=== PATIENT | female | born 1950 | race Caucasian/White ===

== ENCOUNTER 2023-09-01 11:05 | Emergency (ER) | payer MEDICARE, BC, OTHER, SELFPAY ==
--- NOTE | ~2023-09-01 | XR_ITS ---
XR chest 2V DATE: 09/01/2023 12:04 INDICATION: Chest pain, shallow breathing TECHNIQUE: AP and lateral views COMPARISON: None FINDINGS: Heart size is normal. No hilar or mediastinal enlargement. No pulmonary infiltrate or consolidation, pleural effusion or pulmonary vascular congestion or pneumo thorax is detected. IMPRESSION: No active cardiopulmonary disease Reviewed, dictated and finalized at location A. CIATE ACCOUNT DIRECTOR
--- NOTE | ~2023-09-01 | CT_ITS ---
EXAMINATION: CTA chest PE protocol DATE: 09/01/2023 16:43 TYRE FITTER INDICATION: Left-sided chest pain. TECHNIQUE: Computed tomographic angiography (CTA) of the chest was performed with 100 mL Omnipaque-35 0 intravenous contrast. The dose-length product was 166.81 mGy-cm. Maximum intensity projection 3D-re constructions of the aorta and other arteries were constructed by the technologist on a separate work station. Automated exposure control and iterative reconstruction technique were employed. COMPARISON: None. FINDINGS: No significant pleural or pericardial effusion. There is mild atherosclerosis. Heart size m ildly enlarged. Study is technically adequate without evidence for pulmonary embolism. There is depen dent atelectasis. No endobronchial lesions. Mildly elevated right diaphragm. No pneumothorax. No endo bronchial lesions. No focal consolidation. There is apical pleural thickening/scarring. There is a 4 mm right upper lobe nodule. Mild thoracic spondylosis. No acute osseous abnormality. IMPRESSION: 1. No evidence for pulmonary embolism. 2: Cardiomegaly. 3: Right upper lobe nodule measuring 4 mm, likely benign. Consider follow-up CT in 12 months. Reviewed, dictated and finalized at location A. FITTER
--- NOTE | 2023-09-01 11:06 | ECG_ITS ---
Measurements Intervals [place] Rate: 88 P: 29 WI: 137 QRS: 22 QRSD: 85 T: -3 QT: 351 QTc: 426 Interpretive Statements SINUS RHYTHM POSSIBLE LEFT ATRIAL ENLARGEMENT [-0.1mV P WAVE IN V1/V2] NONSPECIFIC ST & T-WAVE ABNORMALITY NO PREVIOUS ECG AVAILABLE FOR COMPARISON Electronically Signed On 09-01-2023 19:50:57 CUSTOMER OPERATIONS MANAGER by Caitlin Lawrence M.D.
[2023-09-01 11:16] VITALS: BP 126/50; PULSE 91; RESP 18; TEMP 37; O2SAT 99
[2023-09-01 11:29] LABS: Basophils Percent Auto 0.4 % (0.2-1.2); Eosinophils Absolute Auto 0.1 K/mm3 (0-0.3); Eosinophils Percent Auto 1.5 % (0-4.4); Hematocrit 40.2 % (37.0-47.0); Immature Granulocyte Absolute 0.02 K/mm3 (0.00-0.031); Immature Granulocyte Percent A 0.3 % (0-0.5); Lymphocytes Absolute Auto 2.39 K/mm3 (0.9-3.2); Mean Corpuscular HGB Conc 32.3 g/dl (32-36); Mean Corpuscular Hemoglobin 34.5 pg (26-34); Mean Corpuscular Volume 106.6 fl (80-100); Mean Platelet Volume 10.8 fl (7.4-10.4); Monocytes Absolute Auto 0.6 K/mm3 (0.1-0.6); Monocytes Percent Auto 8.1 % (2.6-8.5); Neutrophils Absolute Auto 4.1 K/mm3 (1.3-6.7); Neutrophils Percent Auto 56.7 % (45.5-73.1); Platelet Count Result 172 k/mm3 (150-375); Red Blood Count 3.77 M/mm3 (4.2-5.4); Red Cell Distribution Width 15.5 % (11.5-14.5); White Blood Count 7.2 K/mm3 (4.5-10.0)
[2023-09-01 11:40] LABS: Prothrombin Time 13.6 Seconds (11.1-14.7)
[2023-09-01 11:41] LABS: Partial Thromboplastin Time 30.1 SECONDS (22.3-36.8)
[2023-09-01 11:42] LABS: Alanine Aminotransferase 17 U/L (6-35); Albumin Level 4.7 g/dL (3.5-5.1); Alkaline Phosphatase 60 U/L (38-126); Anion Gap 9 mmol/L (8-16); Aspartate Amino Transferase 23 U/L (14-36); Bilirubin,Total 0.6 mg/dL (0.2-1.3); Blood Urea Nitrogen 13 mg/dL (7-17); Calcium 9.5 mg/dL (8.4-10.2); Carbon Dioxide 27 mmol/L (22-30); Chloride 105 mmol/L (98-107); Estimated CRCL calculation 51 ml/min; Estimated Glomerular Filt Rate > 60; Glucose 131 mg/dL (65-110); Lipase 70 U/L (23-300); Sodium 141 mmol/L (137-145)
[2023-09-01 11:53] LABS: Platelet Estimate Adequate (Adequate); Schistocytes None Seen (NORMAL); Troponin I < 0.012 ng/mL (0.000-0.034)
[2023-09-01 11:54] LABS: Anisocytosis 1+ (NORMAL)
--- NOTE | 2023-09-01 14:24 | ECG_ITS ---
Measurements Intervals [place] Rate: 72 P: 56 NE: 130 QRS: 20 QRSD: 81 T: 25 QT: 380 QTc: 416 Interpretive Statements SINUS RHYTHM POSSIBLE LEFT ATRIAL ENLARGEMENT [-0.1mV P WAVE IN V1/V2] NONSPECIFIC T-WAVE ABNORMALITY COMPARED TO ECG 09/01/2023 11:18:44 NO SIGNIFICANT CHANGES Electronically Signed On 09-01-2023 19:55:11 DEPUTY EDITOR IN CHIEF by Caitlin Lawrence M.D.
[2023-09-01 14:55] LABS: Troponin I < 0.012 ng/mL (0.000-0.034)
--- NOTE | 2023-09-01 15:34 | ED.CHESTPAIN ---
HPI - Chest Pain General Chief Complaint: Chest Pain Stated Complaint: chest pain Time Seen by Provider: 09/01/23 14:16 Source: patient, RN notes reviewed and old records reviewed Mode of arrival: ambulatory Limitations: no limitations History of Present Illness HPI narrative: This is a 73 year old female who presents for evaluation of chest pain. PAtient states she developed left chest pain on . This pain lasted several hours before it resolved. She states she was awaken with pain this morning at 5 am. Her pain has been constant all day. She reports shall respirations and she feels pain worse with breathing. She reports her pain is 1/10. She denies nausea, vomiting or dizziness. She denies heart disease. Related Data Allergies Allergy/AdvReac Type Severity Reaction Status Date / Time Sulfa (Sulfonamide AdvReac Mild Nausea Verified 09/01/23 15:26 Antibiotics) Review of Systems Constitutional: Constitutional: Denies weakness Cardiovascular: Cardiovascular: Reports chest pain, Denies syncope, Denies rapid heart rate, Denies irregular heart rhythm, Denies leg edema and Denies dyspnea Respiratory: Respiratory: Denies chest congestion, Denies hemoptysis, Denies excessive phlegm production and Denies dyspnea Gastrointestinal: Gastrointestinal: Denies abdominal pain, Denies hematochezia, Denies diarrhea and Denies vomiting Genitourinary: Genitourinary: Denies hematuria and Denies dysuria Musculoskeletal: Musculoskeletal: Denies joint swelling, Denies loss of height and Denies muscle weakness Neurologic: Denies syncope, Denies focal weakness and Denies weakness PMFSH Past Medical History Medical History Patient denies medical problems Social History Social History (Updated 09/01/23 @ 16:23 by Estela Jimenez MD) Smoking status: Never smoker Exam Const: General: no acute distress and alert Nutritional Appearance: well nourished Orientation/consciousness: patient oriented x3 HENMT: Head: normal to inspection Ears: external ears normal Eyes: EOM: EOMs intact bilaterally Neck: Neck: normal visual inspection Chest: Chest palpation & inspection: normal inspection of the chest Resp: Effort & Inspection: normal respiratory effort Auscultation: clear to auscultation bilaterally Cardio: Rate: regular rate Rhythm: regular rhythm Heart sounds: no murmurs GI: GI Palp: Yes Soft to palpation, No Tenderness to palpation present (GI), No Guarding due to palpation present (GI) and No Rigid due to palpation Skin: General skin exam: normal color Rashes: no rashes Wounds: no wounds Neuro: General: patient oriented x3, moves all extremities and CN's II-XI intact bilaterally Extrem: General: normal to inspection Psych: Mental Status: mental status grossly normal Affect: normal affect Attitude: cooperative Course Reevaluation(s) Reevaluation #1: PAtient does not have any pain. I discussed that with patient no acute findings. I spoke with payroll accounting manager, Dr. burden . I discussed patent with atypical chest pain. She will have office to call patient to make appointment for outpatient evaluation. I also discussed with patient return precautions and to call PCP on sunday for further evaluation. Constance states she is comfortable with discharge home. Date: 09/01/23 Time: 17:50 Vital Signs Vital signs: Vital Signs Temperature 98.6 F 09/01/23 11:16 Pulse Rate 91 09/01/23 11:16 Respiratory Rate 18 09/01/23 11:16 Blood Pressure 126/50 L 09/01/23 11:16 Pulse Oximetry 99 09/01/23 11:16 Oxygen Delivery Room Air 09/01/23 11:16 Temperature 98.6 F 09/01/23 11:16 Pulse Rate 87 09/01/23 16:46 Respiratory Rate 17 09/01/23 16:46 Blood Pressure 141/79 H 09/01/23 16:46 Pulse Oximetry 100 09/01/23 16:46 Oxygen Delivery Room Air 09/01/23 11:16 MDM - Chest Pain Differential Diagnosis Differential diagnosis: Lik
[2023-09-01] MEDS: KETOROLAC 15 MG/ML VIAL (*BKC) IV PUSH (15:55)
[2023-09-01 16:46] VITALS: BP 141/79; PULSE 87; RESP 17; O2SAT 100
== END 2023-09-01 18:18 | disposition home or self-care (01) ==
PROVIDERS: Emergency Provider General Practice
DX: R07.89 Other chest pain (principal)
CPT/HCPCS: 36415; 71046; 71275; 80053; 83690; 84484; 85025; 85610; 85730; 93005; 96374; 99284; J1885; Q9967

== ENCOUNTER 2025-06-16 10:45 | Outpatient (RCR) | payer MEDICARE, BC, OTHER, SELFPAY ==
--- NOTE | 2025-06-16 16:12 | PCDIET ---
MNT consult completed 05/21/25. Follow up completed today - Notes faxed to referring provider.
== END 2025-08-10 10:54 | disposition home or self-care (01) ==
LOC: ANHDMC 10:45
PROVIDERS: Visit Provider Internal Medicine Geriatric Medicine
DX: R73.03 Prediabetes (principal); Z71.3 Dietary counseling and surveillance
CPT/HCPCS: 97802; 97803